=== PATIENT | male | born 1975 | race Caucasian/White ===

== ENCOUNTER 2023-08-25 15:01 | Emergency (ER) | payer MEDICAID, SELFPAY ==
[2023-08-25 15:08] VITALS: BP 125/80; PULSE 97; RESP 16; TEMP 36.7; O2SAT 99
[2023-08-25 15:25] VITALS: BP 125/80; PULSE 97; RESP 16; TEMP 36.7; O2SAT 99
--- NOTE | 2023-08-25 15:51 | ED.EYEPROB ---
HPI - Eye Problem General Chief complaint: Eye Problems Stated complaint: right eye Time Seen by Provider: 08/25/23 15:48 Source: patient and RN notes reviewed Mode of arrival: ambulatory Limitations: no limitations History of Present Illness HPI Narrative: Patient presents today complaining of pain and foreign body sensation to the right eye after he rubbed a yesterday after work. Reports some watering to the area. Pain and irritation is primarily to the medial portion of the eye. He did flush it out twice without relief of symptoms. Reports some blurred vision. Does not were contacts, but does wear glasses on occasion. Was not wearing glasses during visual acuity. Left: 20/30, right: 20/50 Related Data Home Medications Medication Instructions Recorded Confirmed No Home Medications 08/25/23 08/25/23 Allergies Allergy/AdvReac Type Severity Reaction Status Date / Time No Known Allergies Allergy Verified 08/25/23 15:02 Review of Systems Review of Systems: CONSTITUTIONAL: Denies body aches, fever, chills, or sweats. EYES: + mild blurred vision, foreign body sensation ENT: Denies rhinorrhea, congestion, sore throat, or otalgia. CARDIOVASCULAR: Denies chest pain, palpitations, or edema. RESPIRATORY: Denies cough or dyspnea. GASTROINTESTINAL: Denies abdominal pain, nausea, vomiting, or diarrhea. GENITOURINARY: Denies dysuria or hematuria. SKIN: Denies rash, itching, or wounds. MUSCULOSKELETAL: Denies back pain, joint pain, or myalgia. NEUROLOGIC: Denies headache, numbness, tingling, or weakness. PSYCH: Denies depression or anxiety. PMFSH Comments At time of signature, I have reviewed and agree with nursing past medical, surgical, social and family history unless otherwise noted. Please see nursing chart for further information. There is no relevant family history pertinent to the presenting complaint Exam Narrative: GENERAL: Well-appearing, well-nourished, and in no acute distress. HEAD: Normocephalic, atraumatic. EYES: EOMI. PERRL. Right eye: Mildly injected conjunctiva. Foreign body noted upon corneal exam. See procedure note. Lids and lashes normal. Left eye normal. ENT: Mucous membranes pink and moist. NECK: Normal AROM. CHEST: No respiratory distress. MUSCULOSKELETAL: No bony tenderness. EXTREMITIES: Normal range of motion. No edema. SKIN: Warm, dry, no rash. Capillary refill normal. Normal skin turgor. NEURO: No focal deficits. Alert and oriented x3. Gait steady. PSYCH: Normal affect. No signs of depression or anxiety. Course Course Level of Care: Express Care Visit Vital Signs Vital signs: Vital Signs Temperature 98.0 F 08/25/23 15:08 Pulse Rate 97 08/25/23 15:08 Respiratory Rate 16 08/25/23 15:08 Blood Pressure 125/80 08/25/23 15:08 Pulse Oximetry 99 08/25/23 15:08 Oxygen Delivery Room Air 08/25/23 15:08 Temperature 98.0 F 08/25/23 15:25 Pulse Rate 97 08/25/23 15:25 Respiratory Rate 16 08/25/23 15:25 Blood Pressure 125/80 08/25/23 15:25 Pulse Oximetry 99 08/25/23 15:25 Oxygen Delivery Room Air 08/25/23 15:25 Reviewed Transfer [facility] Transportation: Other (Private vehicle) Transfer rationale: Embedded foreign body Accepting physician: Thanh Procedures Other Procedure Procedure 1: Other Procedure: Right eye was anesthetized with 1 drop of tetracaine and anesthesia was achieved. The eye was flushed with eye wash. Lid was inverted and examined. Moistened Qtip was used to sweep underneath the upper eyelid with 0 foreign bodies resulting. Cornea was dyed with fluorescein and 1 tiny foreign body noted to the pupil area. Pt tolerated procedure well. MDM - Eye Problem MDM Narrative Medical decision making narrative: Foreign body, likely metal, noted to be imbedded in the right cornea. Patient will be transferred to the ER at [facility] for further evaluation. Differ
--- NOTE | 2023-08-25 15:54 | PC.NURSE ---
environmental health physician at bedside to do eye exam. eye kit at bedside.
--- NOTE | 2023-08-25 16:03 | PC.NURSE ---
aware of need for higher level of care. requested [facility]
== END 2023-08-25 16:12 | disposition short-term general hospital (02) ==
PROVIDERS: Emergency Provider Nurse Practitioner
DX: T15.01XA Foreign body in cornea, right eye, initial encounter (principal); W44.9XXA Unspecified foreign body entering into or through a natural orifice, initial encounter
CPT/HCPCS: 99213; A9270; G0463